=== PATIENT | female | born 1995 | race Caucasian/White ===

== ENCOUNTER 2017-05-19 08:44 | Inpatient (IN) | payer BC, OTHER ==
[2017-05-19] MEDS ORDERED: Ondansetron HCl/PF 4 MG/2 ML Vial ONE (09:17)
[2017-05-19] MEDS ORDERED: Fentanyl 100 MCG/2 ML VIAL ONE ×3 (09:17→12:22)
[2017-05-19 09:39] LABS: #Basophils 0.1 thou/uL (0.0-0.2); #Eosinphils 0.1 thou/uL (0.0-0.7); #Lymphocytes 1.7 thou/uL (1.20-3.40); #Monocytes 0.5 thou/uL (0.11-0.59); #Neutrophils 9.9 thou/uL (1.40-6.50); %Basophils 0.5 % (0.0-1.0); %Eosinophils 1.1 % (0.0-10.0); %Lymphocytes 13.7 % (21.0-51.0); Red Blood Cell (RBC) Count 4.41 mill/uL (4.20-5.40); White Blood Cell (WBC) Count 12.2 thou/uL (4.8-10.8)
[2017-05-19 09:47] LABS: PTT 26.3 SEC (22.9-36.1); Prothrombin Time 14.8 SEC (12.0-14.7)
[2017-05-19 09:55] LABS: Lactic Acid - Sepsis 2.7 mmol/L (0.5-2.2)
[2017-05-19 10:01] LABS: ALT (SGPT) 80 U/L (8-55); AST (SGOT) 113 U/L (5-34); Alkaline Phosphatase 43 U/L (40-150); Anion Gap 12 mmol/L (10-20); BUN (Urea Nitrogen) 9 mg/dL (7.0-18.7); Bilirubin, Total 0.4 mg/dL (0.2-1.2); Calc. Creatinine Clearance 0 mL/min (70-130); Calcium 8.7 mg/dL (7.8-10.44); Carbon Dioxide 22 mmol/L (22-29); Chloride 108 mmol/L (98-107); Estimated GFR-MDRD 86; Globulin 3.1 g/dL (2.4-3.5); Protein, Total 6.7 g/dL (6.0-8.3)
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
[2017-05-19] MEDS ORDERED: Adacel (T-DAP) 0.5 ML VIAL ONE (10:29)
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
[2017-05-19 13:14] LABS: Bilirubin Negative (Negative); Blood, Urine Large (Negative); Glucose, Urine (Dipstick) Negative (Negative); Ketone, Urine Negative (Negative); Nitrite Positive (Negative); Protein, Urine (Dipstick) 30 mg/dL (Neg-Trace); Urobilinogen 0.2 mg/dL (0.2-1.0)
[2017-05-19 13:16] LABS: Bacteria/HPF 4+ HPF (None Seen); Hyaline Casts/LPF 0-3 HYALINE CAST LPF (0-3 Hyaline); Squamous Epithelial 0-3 HPF (0-3)
[2017-05-19] MEDS ORDERED: Promethazine HCl 25 MG/ML VIAL IM PRN ×2 (13:21)
[2017-05-19] MEDS ORDERED: Dextrose 50% Abboject 50 ML SYRINGE SLOW IVP PRN (13:21)
[2017-05-19] MEDS ORDERED: Dextrose 5% in Water 1,000 ML IV PRN (13:21)
[2017-05-19] MEDS ORDERED: Ondansetron HCl/PF 4 MG/2 ML Vial IVP PRN (13:21)
[2017-05-19] MEDS ORDERED: Ondansetron ODT 4 MG TAB PO PRN (13:21)
[2017-05-19] MEDS ORDERED: hydrALAZINE 20 MG/ML VIAL SLOW IVP PRN (13:21)
[2017-05-19 13:29] LABS: Yeast-All Forms None Seen HPF (None Seen)
[2017-05-19] MEDS: Morphine 4 MG/ML Carpuject IVP PRN ×5 (14:01→22:28)
[2017-05-19] MEDS: Sodium Chloride 0.9% 1,000 ML IV SCH ×2 (14:01→21:53)
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
[2017-05-19 14:42] VITALS: BMI 22.9
[2017-05-19] MEDS ORDERED: ISOVUE-370 76%-LOCM 1 ML ONE (16:30)
[2017-05-19] MEDS: Acetaminophen 1,000 MG in Premix Bag 1 BAG IVPB SCH (18:08)
[2017-05-19] MEDS: tiZANidine HCl 4 MG TAB PO PRN (19:26)
[2017-05-19] MEDS ORDERED: Cyclobenzaprine 10 MG TAB PO PRN (19:52)
[2017-05-19] MEDS: Famotidine 20 MG TAB PO SCH (20:27)
[2017-05-19] MEDS: Famotidine/PF 20 mg/2ml Vial SLOW IVP SCH (20:34)
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
[2017-05-19] MEDS: cefTRIAXone\\ROCEPHIN 1 GM in Sodium Chloride 0.9% 100 ML IVPB SCH (21:45)
[2017-05-20] MEDS: Acetaminophen 1,000 MG in Premix Bag 1 BAG IVPB SCH ×2 (00:46→05:41)
[2017-05-20] MEDS: Morphine 4 MG/ML Carpuject IVP PRN ×2 (04:46→09:16)
[2017-05-20] MEDS: Sodium Chloride 0.9% 1,000 ML IV SCH (05:24)
[2017-05-20] MEDS: tiZANidine HCl 4 MG TAB PO PRN (05:29)
[2017-05-20 06:21] LABS: #Eosinphils 0.1 thou/uL (0.0-0.7); #Monocytes 0.5 thou/uL (0.11-0.59); %Basophils 0.3 % (0.0-1.0); %Eosinophils 2.2 % (0.0-10.0); %Lymphocytes 29.8 % (21.0-51.0); %Monocytes 7.6 % (0.0-10.0); Hematocrit 35.6 % (36.0-47.0); Mean Platelet Volume 7.6 fL (7.4-10.4); Red Blood Cell (RBC) Count 3.81 mill/uL (4.20-5.40); White Blood Cell (WBC) Count 6.6 thou/uL (4.8-10.8)
[2017-05-20 06:49] LABS: Anion Gap 10 mmol/L (10-20); BUN (Urea Nitrogen) 4 mg/dL (7.0-18.7); Calc. Creatinine Clearance 149 mL/min (70-130); Carbon Dioxide 21 mmol/L (22-29); Chloride 109 mmol/L (98-107); Estimated GFR-MDRD Greater than 90
[2017-05-20] MEDS: Famotidine 20 MG TAB PO SCH ×2 (09:21→20:40)
[2017-05-20] MEDS: Famotidine/PF 20 mg/2ml Vial SLOW IVP SCH (09:22)
[2017-05-20] MEDS ORDERED: HYDROcodone/Acetaminophen 10/325 mg Tablet PO PRN (09:48)
[2017-05-20] MEDS: HYDROcodone/Acetaminophen 10/325 mg Tablet PO SCH ×3 (10:35→18:31)
[2017-05-20] MEDS: Ketorolac Tromethamine 30 MG/ML VIAL IVP SCH ×2 (12:11→18:31)
[2017-05-20] MEDS: Gabapentin 100 MG CAP PO SCH ×2 (15:57→20:40)
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
[2017-05-20] MEDS: cefTRIAXone\\ROCEPHIN 1 GM in Sodium Chloride 0.9% 100 ML IVPB SCH (21:59)
[2017-05-21] MEDS: HYDROcodone/Acetaminophen 10/325 mg Tablet PO SCH ×7 (00:22→21:43)
[2017-05-21] MEDS: Ketorolac Tromethamine 30 MG/ML VIAL IVP SCH ×4 (00:22→18:39)
[2017-05-21] MEDS: Gabapentin 100 MG CAP PO SCH ×3 (09:05→20:29)
[2017-05-21] MEDS: Famotidine 20 MG TAB PO SCH ×2 (09:05→20:30)
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
[2017-05-21] MEDS: Senokot S 8.6-50 MG TAB PO SCH (17:32)
[2017-05-21] MEDS: cefTRIAXone\\ROCEPHIN 1 GM in Sodium Chloride 0.9% 100 ML IVPB SCH (21:43)
[2017-05-22] MEDS: Ketorolac Tromethamine 30 MG/ML VIAL IVP SCH ×5 (00:07→23:56)
[2017-05-22] MEDS: HYDROcodone/Acetaminophen 10/325 mg Tablet PO SCH ×6 (03:16→22:03)
[2017-05-22] MEDS: tiZANidine HCl 4 MG TAB PO PRN (03:20)
[2017-05-22] MEDS ORDERED: Magnesium Citrate 300 ML BOT PO SCH (08:30)
[2017-05-22] MEDS: Senokot S 8.6-50 MG TAB PO SCH ×2 (09:19→22:02)
[2017-05-22] MEDS: Polyethylene Glycol 3350 17 GM Packet PO SCH (09:19)
[2017-05-22] MEDS: Famotidine 20 MG TAB PO SCH ×2 (09:19→22:02)
[2017-05-22] MEDS: Gabapentin 100 MG CAP PO SCH ×3 (09:19→22:02)
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
[2017-05-23] MEDS: HYDROcodone/Acetaminophen 10/325 mg Tablet PO SCH ×4 (02:48→14:10)
[2017-05-23] MEDS: Ketorolac Tromethamine 30 MG/ML VIAL IVP SCH ×2 (06:10→12:21)
[2017-05-23] MEDS: Famotidine 20 MG TAB PO SCH (10:07)
[2017-05-23] MEDS: Gabapentin 100 MG CAP PO SCH ×2 (10:07→14:10)
[2017-05-23] MEDS: Senokot S 8.6-50 MG TAB PO SCH (10:07)
[2017-05-23] MEDS: Polyethylene Glycol 3350 17 GM Packet PO SCH (10:07)
[2017-05-23] MEDS ORDERED: Bisacodyl 10 MG SUPP PR PRN (12:59)
[2017-05-23 13:24] VITALS: BP 124/77; TEMP 98.3
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
== END 2017-05-23 15:49 | DRG 552 ==
LOC: ERS 08:44 → SURG B 12:22
PROVIDERS: ADMIT Surgery; ATTEND Surgery
DX: S32.010A Wedge compression fracture of first lumbar vertebra, initial encounter for closed fracture (principal); N39.0 Urinary tract infection, site not specified; S32.021A Stable burst fracture of second lumbar vertebra, initial encounter for closed fracture; T14.8XXA Other injury of unspecified body region, initial encounter; V43.52XA Car driver injured in collision with other type car in traffic accident, initial encounter; Y92.410 Unspecified street and highway as the place of occurrence of the external cause
CPT/HCPCS: 36415; 36416; 51702; 70450; 70486; 71260; 72100; 72125; 74177; 80048; 80053; 81003; 81015; 83605; 84703; 85025; 85610; 85730; 90715; 93005; 96361; 96374; 96375; 96376; G0390; G8978-GP-CL; G8979-GP-CI; G8987-GO-CL; G8988-GO-CJ; J0131; J0696; J1885; J2270; J2405; J3010; J7050

== ENCOUNTER 2017-06-17 13:41 | Outpatient (CLI) | payer BC ==
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
== END 2017-06-17 13:42 | disposition home or self-care (01) ==
LOC: TBSIIMAG 13:41
PROVIDERS: ATTEND Neurological Surgery
DX: M51.17 Intervertebral disc disorders with radiculopathy, lumbosacral region (principal); S32.021D Stable burst fracture of second lumbar vertebra, subsequent encounter for fracture with routine healing; S32.019D Unspecified fracture of first lumbar vertebra, subsequent encounter for fracture with routine healing; M48.061 Spinal stenosis, lumbar region without neurogenic claudication
CPT/HCPCS: 72131

== ENCOUNTER 2017-07-22 09:18 | Outpatient (CLI) | payer BC ==
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
== END 2017-07-22 09:19 | disposition home or self-care (01) ==
LOC: TBSIIMAG 09:18
PROVIDERS: ATTEND Neurological Surgery
DX: S22.008A Other fracture of unspecified thoracic vertebra, initial encounter for closed fracture (principal); S32.021A Stable burst fracture of second lumbar vertebra, initial encounter for closed fracture
CPT/HCPCS: 72100

== ENCOUNTER 2017-11-05 14:53 | Outpatient (CLI) | payer SELFPAY | END 2017-11-05 14:54 | disposition home or self-care (01) | LOC: BICRAD 14:53 | PROVIDERS: ATTEND Neurological Surgery | DX: S22.008A Other fracture of unspecified thoracic vertebra, initial encounter for closed fracture; S32.020D Wedge compression fracture of second lumbar vertebra, subsequent encounter for fracture with routine healing | CPT/HCPCS: 72100 ==